=== PATIENT | female | born 1970 | race Caucasian/White ===

== ENCOUNTER 2017-02-03 19:03 | Emergency (ER) | payer OTHER ==
[2017-02-03 19:27] VITALS: BP 143/80
--- NOTE | 2017-02-03 19:47 | UC ---
Respiratory Complaint HPI - HPI Summary HPI Summary: This is a 46 yo female with h/o GERD and OA with morbid obesity who presented with c/o a 1 week history of productive cough. She noted some blood tinged sputum today. She was febrile last week. No sig SOB, but reports pleuritic pain in the R posterior chest. Denies abd pain, n/v. She has had some recent diarrhea. Her boyfriend was recently sick with similar but less severe symptoms. She recently had injections in her SI joints and R knee. She examined each injection site and reported no erythema and denies pain. - History of Current Complaint Chief Complaint: UCGeneralIllness Stated Complaint: COUGH Hx Last Menstrual Period: 01/31/14 - Allergies/Home Medications Allergies/Adverse Reactions: Allergies Allergy/AdvReac Type Severity Reaction Status Date / Time No Known Allergies Allergy Verified 02/03/17 19:27 Home Medications: Home Medications Loratadine [Claritin 10 MG CAP] 10 mg PO DAILY 02/03/17 [History Confirmed 02/03] Topiramate [Topamax 50 mg tab] 50 mg PO DAILY 02/03/17 [History Confirmed ] PMH/Surg Hx/FS Hx/Imm Hx Previously Healthy: No - morbid obesity, GERD, OA - Surgical History Surgical History: Yes Surgery Procedure, Year, and Place: tonsilectomy, R knee arthroscopy, novasure, hysterectomy with anterior and posterior repair, bladder sling--12/2015 - Social History Alcohol Use: Occasionally Substance Use Type: None Smoking Status (MU): Former Smoker When Did the Patient Quit Smoking/Using Tobacco: 2004 - Immunization History Most Recent Tetanus Shot: pt does not know Review of Systems Constitutional: Negative Skin: Negative Eyes: Negative ENT: Negative Respiratory: Cough Cardiovascular: Negative Gastrointestinal: Negative Genitourinary: Negative Motor: Negative Neurovascular: Negative Musculoskeletal: Negative Neurological: Negative Psychological: Negative All Other Systems Reviewed And Are Negative: Yes Physical Exam Triage Information Reviewed: Yes Appearance: Well-Appearing Vital Signs: Initial Vital Signs Temp 98.8 F 02/03/17 19:19 Pulse 88 02/03/17 19:19 Resp 20 02/03/17 19:19 BP 143/80 02/03/17 19:19 Pulse Ox 98 02/03/17 19:19 Vital Signs Reviewed: Yes ENT: Positive: Normal ENT inspection Dental Exam: Normal Neck: Positive: Supple, Nontender, No Lymphadenopathy Respiratory: Positive: Chest non-tender, Lungs clear, Normal breath sounds. Negative: Crackles, Rhonchi, Wheezing Cardiovascular: Positive: RRR, No Murmur Abdominal Exam: Normal Abdomen Description: Positive: Nontender UC Diagnostic Evaluation - Laboratory O2 Sat by Pulse Oximetry: 98 Diagnostic Studies Comment: CXR - NAD Respiratory Course/Dx - Course Course Of Treatment: This is a 46 yo female who presented with a 1 week h/o cough, fever, chills with purulent, blood tinged sputum. No infiltrate on CXR, but with no improvement after one week of symptoms, will treat for atypical pathogens with doxycycline - Differential Dx/Diagnosis Differential Diagnosis/HQI/PQRI: Bronchitis, Laryngitis, Lower Resp Infection, Sinusitis Provider Diagnoses: 1. Acute respiratory illness Discharge - Discharge Plan Condition: Stable Disposition: HOME Prescriptions: DOXYcycline CAP(*) [DOXYcycline 100MG CAP(*)] 100 mg PO BID #14 cap Patient Education Materials: Acute Bronchitis (ED) Referrals: Merissa Sarabia PA [Primary Care Provider] - Additional Instructions: Activity: As tolerated Instructions: 1. Use antibiotics as directed 2. Apply warm packs, use ibuprofen/tylenol as needed for treatment of your back pain
--- NOTE | 2017-02-03 20:00 | RAD ---
INDICATION: Fever and cough COMPARISON: Chest x-ray dated July 10, 2008 (the time of this dictation only the lateral view is available). TECHNIQUE: PA and lateral views of the chest were obtained. FINDINGS: The heart and mediastinum are normal in size and contour. The lungs are grossly clear. There is no evidence of large pleural effusion. Visualized bones are normal for the patient's age. There is no radiographic evidence of free air beneath the diaphragm IMPRESSION: No radiographic evidence of acute cardiopulmonary disease.
== END 2017-02-03 20:22 | disposition home or self-care (01) ==
LOC: UCCORT 19:03
DX: J98.9 Respiratory disorder, unspecified (principal); E66.01 Morbid (severe) obesity due to excess calories; Z87.891 Personal history of nicotine dependence
CPT/HCPCS: 71020; 99212; G0463

== ENCOUNTER 2017-07-08 08:38 | Inpatient (IN) | payer BC ==
[~2017-07-08 08:38] MED LIST: Buffered Lidocaine 0.9% SYRIN* 5 ML/SYR SYRINGE INTRADERM ONE; Famotidine TAB* 20 MG PO ONE; Ibuprofen TAB* 400 MG PO ONE; Metoclopramide TAB* 10 MG PO ONE; Scopolamine 1.5 mg* PATCH TRANSDERM ONE; Sodium Citrate/Citric Acid* 15 ML UDC PO ONE
[2017-07-08] MEDS ORDERED: Heparin VIAL(*) 5000 UNITS/ML VIAL (FIVE THOUSAND) ONE (08:44)
[2017-07-08] MEDS ORDERED: Ibuprofen TAB* 400 MG ONE (08:44)
[2017-07-08] MEDS ORDERED: Sodium Citrate/Citric Acid* 15 ML UDC ONE (08:45)
[2017-07-08] MEDS ORDERED: Clindamycin 900 MG IVPREMIX(* 900 MG/50 ML SDV IV ONE (08:45)
[2017-07-08] MEDS ORDERED: ceFAZolin 1 GM in Dextrose (*) 1 GM/50 ML BAG IVPB ONE (08:45)
[2017-07-08] MEDS ORDERED: Scopolamine 1.5 mg* PATCH ONE (08:45)
[2017-07-08] MEDS ORDERED: ceFAZolin 2 GM PREMIX (*) 2 GM/50 ML BAG IVPB ONE (08:45)
[2017-07-08] MEDS ORDERED: Famotidine TAB* 20 MG ONE (08:45)
[2017-07-08] MEDS ORDERED: Metoclopramide TAB* 10 MG ONE (08:45)
[2017-07-08] MEDS ORDERED: Buffered Lidocaine 0.9% SYRIN* 5 ML/SYR SYRINGE ONE (08:46)
[2017-07-08] MEDS ORDERED: Methylene Blue 0.5 %* 50 MG/10 ML AMP IV ONE (11:43)
[2017-07-08] MEDS ORDERED: Bupivacaine 0.5% SDV PF* 30 ML VIAL ONE (11:43)
[2017-07-08] MEDS ORDERED: Atracurium* 10 MG/ML 10 ML VIAL ONE (11:58)
[2017-07-08] MEDS ORDERED: fentaNYL* 50 MCG/ML 2 ML VIAL (100 MCG VIAL) ONE ×3 (11:58→14:53)
[2017-07-08] MEDS ORDERED: Lidocaine 2% PF * 5 ML VIAL ONE (12:03)
[2017-07-08] MEDS ORDERED: Dexamethasone IV* 4 MG/ML 1 ML (4 MG) ONE (12:03)
[2017-07-08] MEDS ORDERED: Propofol* 10 MG/ML 20 ML BTL IV PUSH ONE (12:03)
[2017-07-08] MEDS ORDERED: oxyCODONE/Acetamin 5/325 MG* TAB PO PRN (12:50)
[2017-07-08] MEDS ORDERED: DiMENhydriNATE IV* 50 MG/ML VIAL IV PUSH PRN (12:50)
[2017-07-08] MEDS ORDERED: Ondansetron INJ* 2 MG/ML VIAL ONE (13:41)
[2017-07-08] MEDS ORDERED: HYDROmorphone INJ* 1 MG/ML CARPUJECT SYRINGE ONE (14:26)
[2017-07-08] MEDS ORDERED: DiMENhydriNATE IV* 50 MG/ML VIAL ONE (14:26)
[2017-07-08] MEDS: fentaNYL* 50 MCG/ML 2 ML VIAL (100 MCG VIAL) IV PRN ×4 (14:29→15:37)
[2017-07-08] MEDS: HYDROmorphone INJ* 1 MG/ML CARPUJECT SYRINGE IV PRN ×4 (14:34→16:04)
--- NOTE | 2017-07-08 14:35 | PN ---
Progress Note - Progress Note Date of Service: 07/08/17 Note: Brief Operative Note: Pre-op: Morbid obesity Post-op: Same Procedure: Laparoscopic Soumya-en-Y gastric bypass Surgeon: Dr. Rodríguez Administrative Liaison: JUAN Jackson Anaesthesia: GETA EBL: Minimal Fluids: LR 1300 cc Catheter: Brumfield to gravity Drains: None Specimen: None Findings: See dictated op note
[2017-07-08] MEDS: Ketorolac INJ* 30 MG/ML 1 ML VIAL IV PRN (15:00)
[2017-07-08] MEDS ORDERED: Ketorolac INJ* 30 MG/ML 1 ML VIAL ONE (15:00)
[2017-07-08] MEDS: HYDROmorphone INJ* 2 MG/ML CARPUJECT SYRINGE IV PRN ×3 (17:09→23:04)
[2017-07-08] MEDS: Ondansetron INJ* 2 MG/ML VIAL IV PRN (17:09)
[2017-07-08] MEDS: Famotidine IV* 10 MG/ML 2 ML (20 mg) IV SLOW PU SCH (19:33)
[2017-07-08] MEDS: Heparin VIAL(*) 5000 UNITS/ML VIAL (FIVE THOUSAND) SUBCUT SCH (23:00)
[2017-07-09] MEDS: Ondansetron INJ* 2 MG/ML VIAL IV PRN ×3 (01:07→18:54)
--- NOTE | 2017-07-09 02:19 | OP ---
CC: [facility]; JUAN Fields, [place] * DATE OF OPERATION: 07/08/17 - ROOM #351 DATE OF : 70 SURGEON: Tyron Rodríguez MD BALANCING MACHINE OPERATOR: JUAN Rosas ANESTHESIOLOGIST: Augusto Medina MD ANESTHESIA: General endotracheal. PRE-OP DIAGNOSIS: Morbid obesity. POST-OP DIAGNOSIS: Morbid obesity. OPERATIVE PROCEDURE: Laparoscopic Soumya-en-Y gastric bypass. ESTIMATED BLOOD LOSS: Less than 30 mL. IV FLUIDS: 1.3 L of crystalloids. SPECIMENS: None. DRAINS: None. COMPLICATIONS: None. COUNT: Instrument, needle, and sponge counts were correct. DESCRIPTION OF PROCEDURE: The patient was brought to the operating room and placed on the table supine. Sequential compression devices were placed on both lower extremities and general anesthesia was administered. The patient was positioned and padded appropriately. After general anesthesia was administered , she had a Brumfield catheter placed. She was administered appropriate intravenous antibiotics. She was prepped and draped in the usual sterile fashion. A time-out was performed. Local anesthetic was infiltrated into the skin and soft tissue prior to making each incision. Entry into the abdomen was through a left upper quadrant incision accommodating a 12-mm optical trocar. Carbon dioxide was insufflated to a pressure of 15 mmHg. Under direct visualization, 12-mm bladeless trocars were placed in the supraumbilical, midline, and in right upper quadrant. 5-mm trocars were placed in the right upper quadrant medially and left upper quadrant laterally. A Cecelia liver retractor was placed percutaneously in the subxiphoid position and used to elevate the left lobe of the liver. Gastric anatomy appeared normal. The gastric cardia was freed from the left crux of the diaphragm using blunt dissection. The lesser sac was entered via a perigastric dissection on the lesser curvature and the gastric pouch was created with several findings of the EndoGIA stapler with rousseau cartridges. The gastric pouch approximated 15 to 30 mL volume. A 34-Telugu orogastric tube was inserted into the gastric pouch and then the transverse colon and omentum were retracted superiorly and the ligament of Treitz was identified. The jejunum was measured out 40 to 50 cm and the loop was then secured to the left lateral staple line on the pouch with interrupted 2-0 silks. The gastrojejunal anastomosis was performed with the EndoGIA stapler with 30-mm rousseau cartridge. The common enterotomy was closed over the 34-Telugu gastric lavage tube. The closure was performed with a running 3- 0 PDS suture. The anastomosis was completed by dividing the loop to the left of the anastomosis to create the Soumya limb. The anastomosis was tested with methylene blue dye solution, instilled through the orogastric tube and no leak was identified. The Soumya limb was measured out 75 cm and at this point, a functional end-to-side jejunojejunostomy was created. The anti-obstruction sutures of 3-0 silk were placed proximally and distally to the anastomosis. The mesenteric defect was closed with 3-0 silk running. Hemostasis was assured. Ports were removed under direct visualization. Carbon dioxide was released. The patient's skin incisions were closed with emilie and dressings were applied. She tolerated the procedure well and was extubated and transferred to Recovery in stable condition. [id number]/CPS #: [id number] WES
[2017-07-09] MEDS: Ketorolac INJ* 30 MG/ML 1 ML VIAL IV PRN ×2 (02:36→09:05)
[2017-07-09] MEDS: Heparin VIAL(*) 5000 UNITS/ML VIAL (FIVE THOUSAND) SUBCUT SCH ×3 (05:49→21:54)
[2017-07-09] MEDS: Famotidine IV* 10 MG/ML 2 ML (20 mg) IV SLOW PU SCH ×2 (07:31→21:54)
[2017-07-09] MEDS: HYDROmorphone INJ* 1 MG/ML CARPUJECT SYRINGE IV PRN ×3 (07:31→19:41)
[2017-07-09] MEDS ORDERED: Acetaminophen ADULT LIQ* 650 MG/20.3 ML UDC PO PRN (11:37)
--- NOTE | 2017-07-09 11:43 | PN ---
Progress Note - Progress Note Date of Service: 07/09/17 SOAP: Subjective: Patient seen and examined at bedside. Reports nausea and right shoulder pain last night, resolved this AM. Denies abdominal pain, vomiting, fever or chills. Ambulatory. Objective: Awake and alert, comfortable in bed, in NAD Vitals reviewed, afebrile Lungs CTA bilat. Heart RRR, no murmurs Abdomen soft, NT, ND. Incisions clean and dry. No guarding, rigidity or rebound. Ext. without edema I/O reviewed Assessment: POD#1, s/p laparoscopic RYGB, doing well Plan: Octaviano laird d/c'ed Ambulate Bariatric clear liquids Likely home in AM
[2017-07-09] MEDS: D5W 1/2 NS KCl 20 Meq 1000 ML* 1,000 ML IV SCH ×2 (14:17→18:50)
[2017-07-09] MEDS: HYDROcodone/ACET. 7.5/325 LIQ* 15 ML UDC PO PRN ×2 (14:29→21:54)
[2017-07-09] MEDS ORDERED: D5W IV ONE (15:00)
[2017-07-09] MEDS ORDERED: [UNRECOGNIZED DRUG - OTHER] IV ONE (15:00)
[2017-07-09] MEDS ORDERED: Cetirizine* 10 MG TAB PO PRN (17:44)
[2017-07-09] MEDS: Cetirizine* 10 MG TAB PO SCH (18:21)
[2017-07-10] MEDS: HYDROmorphone INJ* 1 MG/ML CARPUJECT SYRINGE IV PRN (00:20)
[2017-07-10] MEDS: D5W 1/2 NS KCl 20 Meq 1000 ML* 1,000 ML IV SCH (02:50)
[2017-07-10] MEDS: HYDROcodone/ACET. 7.5/325 LIQ* 15 ML UDC PO PRN ×2 (05:36→11:44)
[2017-07-10] MEDS: Heparin VIAL(*) 5000 UNITS/ML VIAL (FIVE THOUSAND) SUBCUT SCH (05:38)
[2017-07-10] MEDS: Ondansetron INJ* 2 MG/ML VIAL IV PRN ×2 (05:42→11:48)
[2017-07-10] MEDS: Famotidine IV* 10 MG/ML 2 ML (20 mg) IV SLOW PU SCH (07:43)
[2017-07-10] MEDS: Cetirizine* 10 MG TAB PO SCH (07:44)
--- NOTE | 2017-07-10 11:01 | PN ---
Progress Note - Progress Note Date of Service: 07/10/17 Note: Surgery Progress (see discharge summary): S: doing fairly well; intake adeq; feels some reflux and burning sensation with drinking; passing flatus; ambulating well; UOP better overnight O: Vital Signs - 8 hr 07/10/17 07/10/17 07/10/17 03:42 04:21 05:36 Temperature 98.4 F Pulse Rate 64 Respiratory 18 16 18 Rate Blood Pressure 130/60 (mmHg) O2 Sat by Pulse 98 Oximetry 07/10/17 07/10/17 07/10/17 07:33 08:00 08:22 Temperature 97.6 F Pulse Rate 54 Respiratory 18 18 18 Rate Blood Pressure 100/61 (mmHg) O2 Sat by Pulse 96 96 Oximetry Intake and Output Last 24 Hours 07/08/17 07/09/17 07/10/17 07/11/17 06:59 06:59 06:59 06:59 Intake Total 4939 3581 977 Output Total 575 1000 1350 Balance 4364 2581 -373 Weight 268 lb Intake: IV Fluids 3939 3221 977 CEFAZOLIN 3 GM 100 CLINDAMYCIN 900MG 50 LR 3789 1244 d51/2 ns 20 kcl 1977 977 IVPB 1000 LR bolus 1000 Oral 0 360 Output: Urine 500 1000 1350 Brumfield 75 Other: # Bowel Movements 0 Gen: NAD Heart: reg Lungs: clear Abd: +BS; incisions clean and dry; dressings d/c'd; soft; min mostly subxiphoid incisional tenderness Extr: no sig edema A: s/p lap RYGB, doing well P: home today; instructions reviewed; Tegan [email or web address]
[2017-07-10 11:37] VITALS: BP 137/63
--- NOTE | 2017-07-10 20:04 | DS ---
CC: JUAN Fields, [facility] * DISCHARGE SUMMARY: DATE OF ADMISSION: 07/08/17 DATE OF DISCHARGE: 07/10/17 ATTENDING SURGEON: Dr. Tyron Rodríguez * (DICTATED BY JUAN ZIEGLER) HOSPITAL COURSE: Please refer to admission history and physical for admission details. The patient was taken to the operating room on 07/08/17, and underwent laparoscopic Soumya-en-Y gastric bypass with Dr. Rodríguez (see separate operative report). The patient has had an otherwise uneventful postoperative course with gradual improvement in pain and tolerance of bariatric clear liquids. As of the morning of discharge, she was ambulating well and passing flatus. Her urine output had improved overnight. PHYSICAL EXAMINATION: Temperature 97.6, blood pressure 100/61, pulse 54, respirations 18, room air saturation 96%. General: A well-nourished obese female in no acute distress. Heart: Regular rate and rhythm. Lungs: Clear to auscultation. No wheezes or rales. Abdomen: Laparoscopic incision sites clean and dry without active drainage or erythema. Abdomen is soft and nontender other than the subxiphoid region where there is some incisional tenderness. There is some mild ecchymosis in the left lateral abdomen secondary to heparin. Extremities: No significant edema. IMPRESSION: Status post laparoscopic Soumya-en-Y gastric bypass, doing well. PLAN: Home today. Instructions were reviewed regarding diet, wound care, and activity. She has a followup set up with the [facility] for next week. JUAN ZIEGLER [id number]/CPS #: [id number]
[2017-07-11] MEDS ORDERED: Scopolamine PATCH Remove* 1 NOTE MISC PATCH OFF ONE (06:00)
== END 2017-07-10 12:30 | disposition home or self-care (01) | DRG 403 ==
LOC: AA 08:38 → SSU 16:16
PROVIDERS: ADMIT Surgery; ATTEND Surgery
PROC: 0D164ZA Bypass Stomach to Jejunum, Percutaneous Endoscopic Approach (ICD-10-PCS; principal; 2017-07-08 10:00)
DX: E66.01 Morbid (severe) obesity due to excess calories (principal); F32.9 Major depressive disorder, single episode, unspecified; I10 Essential (primary) hypertension; M17.11 Unilateral primary osteoarthritis, right knee; M25.511 Pain in right shoulder; R11.0 Nausea; K21.9 Gastro-esophageal reflux disease without esophagitis; Z90.710 Acquired absence of both cervix and uterus; Z82.49 Family history of ischemic heart disease and other diseases of the circulatory system; Z83.3 Family history of diabetes mellitus; Z82.61 Family history of arthritis; Z80.3 Family history of malignant neoplasm of breast; Z80.49 Family history of malignant neoplasm of other genital organs; Z83.49 Family history of other endocrine, nutritional and metabolic diseases; Z84.89 Family history of other specified conditions; Z87.891 Personal history of nicotine dependence; Z68.42 Body mass index [BMI] 45.0-49.9, adult
CPT/HCPCS: 43644; A9270-GY; C1776; J0690; J1100; J1170; J1240; J1644; J1885; J2405; J2704; J3010

== ENCOUNTER 2017-08-25 09:40 | Emergency (ER) | payer BC ==
--- NOTE | 2017-08-25 10:19 | ED ---
Abdominal Pain/Female - HPI Summary HPI Summary: Patient here with right upper quadrant pain radiating to Rt shoulder past few days. 3/10 at rest - 8/10 at worse. better w/ holding the area/applying pressure. Pain is worse after eating or drinking but this morning noticed she had right upper quadrant pain without anything by mouth. Denies fevers chills nausea vomiting diarrhea however she reports a more pale stool the past few days. She reports she's had some right upper quadrant discomfort since gastric bypass surgery (Soumya-en-Y procedure) on 07/08/[address] Rodríguez. She's been progressing through stages of liquids to foods and tolerating well. She's had follow-up with Dr. Rodríguez since surgery without any complications from surgery (ie. infections, set backs with PO tolerance, etc). She denies rapid weight loss. She does admit she was diagnosed with the influenza last week - this entailed sore throat, rhinorrhea, cough. Her symptoms have mostly resolved except for a lingering cough due to postnasal drip. She denies chest pain or wheezing but does experience SOB when she gets coughing hard. Last fever was last Friday. She still has her gallbladder. Other ab surgeries include hysterectomy sparing her ovaries. She denies urinary symptoms and had her last bowel movement this morning without difficulty. She has consumed 24oz of fluid already this morning over 4 hours, water and coffee ("sips" as large quantities are painful). PCP sent her over for evaluation w/ persistent and worsening of RUQ pain. - History of Current Complaint Chief Complaint: EDAbdPain Stated Complaint: RT UPPER QUADRANT PAIN Time Seen by Provider: 08/25/17 09:48 Hx Obtained From: Patient Hx Last Menstrual Period: 01/31/14 Pain Intensity: 2 Allergies/Adverse Reactions: Allergies Allergy/AdvReac Type Severity Reaction Status Date / Time No Known Allergies Allergy Verified 07/08/17 08:52 PMH/Surg Hx/FS Hx/Imm Hx Previously Healthy: Yes Endocrine/Hematology History: Denies: Hx Anticoagulant Therapy, Hx Blood Disorders, Hx Diabetes, Hx Thyroid Disease, Hx Anemia Cardiovascular History: Denies: Hx Hypercholesterolemia, Hx Hypertension, Hx Myocardial Infarction Respiratory History: Denies: Hx Asthma, Hx Chronic Obstructive Pulmonary Disease (COPD) GI History: Reports: Hx Gastroesophageal Reflux Disease Musculoskeletal History: Reports: Hx Arthritis, Hx Bursitis - bilat hips Sensory History: Reports: Hx Contacts or Glasses Denies: Hx Hearing Aid Opthamlomology History: Reports: Hx Contacts or Glasses Neurological History: Comment Only: Other Neuro Impairments/Disorders - PAIN CLINIC PT - Cancer History Hx Chemotherapy: No - Surgical History Surgery Procedure, Year, and Place: tonsilectomy, R knee arthroscopy, novasure, hysterectomy with anterior and posterior repair, bladder sling--12/2015 Hx Anesthesia Reactions: No Infectious Disease History: No Infectious Disease History: Denies: Hx of Known/Suspected MRSA, Traveled Outside the [place] in Last 30 Days - Family History Known Family History: Positive: None - Social History 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 Negative: Sore Throat, Ear Ache Cardiovascular: Negative Negative: Chest Pain Positive: Cough Positive: Abdominal Pain. Negative: Vomiting, Diarrhea, Nausea Genitourinary: Negative Musculoskeletal: Negative Skin: Negative, Other - surgical scars healing well Positive: Headache - dull around back of head - tolerable - has had this since influenza sx started Psychological: Normal All Other Systems Reviewed And Are Negative: Yes Physical Exam Triage Information Reviewed: Yes Vital Signs On Initial Exam: Initial Vitals Temp Pulse Resp BP Pulse Ox 97.8 F 73 20 151/81 98 08/25/17 09:41 08/25/17 09:41 08/25/17 09:41 08/25/17 09:41 08/25/17 09:41 Vital Signs Reviewed: Yes Appearance: Positive: Well-Appearing, No Pain Distress, Obese Skin: Positive: Warm, Skin Color Reflects Adequate Perfusion - scars over ab appear to be healing well - pink, warm, dry w/o erythema or edema - evenly dispursed and mild TTP over each site, appropriate given procedure and healing time frame., Dry Head/Face: Positive: Normal Head/Face Inspection Eyes: Positive: Normal, EOMI, Conjunctiva Clear - anicteric sclera ENT: Positive: Normal ENT inspection, Hearing grossly normal, Pharynx normal - mucosa moist, Nasal congestion - mild, TMs normal, Uvula midline. Negative: Nasal drainage, Tonsillar swelling, Tonsillar exudate, Trismus, Muffled voice Neck: Positive: Supple, Nontender, No Lymphadenopathy Respiratory/Lung Sounds: Positive: Clear to Auscultation, Breath Sounds Present. Negative: Decreased Breath Sounds, Rales, Rhonchi, Stridor, Tracheal Deviation, Wheezes Cardiovascular: Positive: Normal, RRR, Pulses are Symmetrical in both Upper and Lower Extremities, S1, S2. Negative: Murmur, Rub Abdomen Description: Positive: No Organomegaly, Soft, Other: - +Chung's sign - no rebounding Bowel Sounds: Positive: Present Pelvic Exam: Positive: other - deferred - no lower pelvic tenderness and pt denies vaginal/urinary sx Musculoskeletal: Positive: Normal, Strength/ROM Intact Neurological: Positive: Normal, Sensory/Motor Intact, Alert, Oriented to Person Place, Time, CN Intact II-III Psychiatric: Positive: Normal Diagnostics - Vital Signs Vital Signs Temp Pulse Resp BP Pulse Ox 08/25/17 09:41 97.8 F 73 20 151/81 98 - Laboratory Result Diagrams: 08/25/17 10:26 08/25/17 10:26 Lab Statement: Any lab studies that have been ordered have been reviewed, and results considered in the medical decision making process. Re-Evaluation - Re-Evaluation First Eval Change: Improved - no pain or nausea since here - she does admit U/S was painful but no pain since Abdominal Pain Fem Course/Dx - Course Course Of Treatment: Bariatric status pt here s/p soumya-en-y on 07/08/2017 w/ Dr. Rodríguez. She reports right upper quadrant discomfort since surgery worse with eating and drinking however this pain is increased over the past few days without change in diet. She has advanced through her diet as directed without difficulties. Denies nausea vomiting diarrhea fevers or chills. She does admit she had influenza this past week however she is recovering from that well at this time. Labs are within normal limits. Ultrasound of gallbladder is without inflammation or stone findings. Discussed with Dr. Webb. He or a colleague will be down to evaluate the patient. Diff dx: Gallbladder dysfunction, pathology status post bariatric surgery, difficulty tolerating by mouth status post bariatric surgery - possibly advancing too quickly and or eating foods/drinking beverages that are not appropriate although pt reports she 's tracking things closely. We will await further imaging based on surgeries consult. UPDATE: Discussed case with general surgery. Diagnosis may be more consistent with biliary dyskinesia and she is safe for discharge. Review danger signs and symptoms of when to return to the ED. Otherwise patient may follow up outpatient for HIDA CCK study and follow-up with general surgeon. - Diagnoses Provider Diagnoses: RUQ abdominal pain Discharge - Discharge Plan Condition: Stable Disposition: HOME Patient Education Materials: Abdominal Pain (ED), Biliary Dyskinesia (DC) Forms: *Work Release Referrals: Tyron Rodríguez MD [Medical Doctor] - Merissa Sarabia PA [Primary Care Provider] - Additional Instructions: The definitive cause of your abdominal pain was not identified today however it is suspicious that she have biliary dyskinesia, a condition where gallbladder does not function correctly. This may be further assessed on an outpatient basis through your primary care office. Call today to request test to be ordered and scheduled. If test is positive for gallbladder dysfunction, you may follow up with your general surgery. Otherwise follow-up with general surgery as directed status post bariatric surgery. Continue with dietary plan as advised however you may consider reducing your fat intake in an effort to reduce triggering gallbladder spasms. *If you develop nausea, vomiting, any diarrhea, intractable abdominal pain, fevers, chills return to the ED.
[2017-08-25 10:35] LABS: ABS Basophils 0.1 10^3/ul (0-0.2); ABS Eosinophils 0.2 10^3/ul (0-0.6); ABS Lymphocytes 2.9 10^3/ul (1.0-4.8); ABS Monocytes 0.5 10^3/ul (0-0.8); ABS Neutrophils 2.4 10^3/ul (1.5-7.7); ABS Nucleated RBC 0 10^3/ul; Eosinophil % 2.9 % (0-6); Hematocrit 43 % (35-47); Hemoglobin 14.3 g/dl (12.0-16.0); Lymphocyte % 48.7 % (25-47); Mean Corpuscular HGB Conc 34 g/dl (31-36); Mean Corpuscular Hemoglobin 30 pg (27-31); Mean Corpuscular Volume 89 fL (80-97); Mean Platelet Volume 8 um3 (7.4-10.4); Nucleated Red Blood Cells % 0; Platelet Count 258 10^3/ul (150-450); Red Blood Count 4.77 10^6/ul (4.0-5.4); Red Cell Distribution Width 15 % (10.5-15)
[2017-08-25 10:45] LABS: Urine Appearance Cloudy; Urine Blood Negative (Negative); Urine Color Yellow; Urine Ketones Negative (Negative); Urine Protein Negative (Negative); Urine Specific Gravity 1.005 (1.010-1.030); Urine Urobilinogen Negative (Negative)
[2017-08-25 10:49] LABS: EGFR Non-African American 124.2 (>60)
[2017-08-25 11:00] LABS: INR 0.94 (0.77-1.02)
--- NOTE | 2017-08-25 12:08 | RAD ---
Indication: Right upper quadrant pain. Real-time sonography of the right upper quadrant was performed. The liver is normal in size. No focal lesions or intrahepatic ductal dilatation is noted. The gallbladder demonstrates no gallstones, pericholecystic fluid or wall thickening. The common duct measures 2 mm. Right kidney measures 11.5 x 6.0 x 5.7 cm with no hydronephrosis. The pancreas where visualized is unremarkable although large portions are obscured by overlying gas. Aorta and inferior vena cava are unremarkable. IMPRESSION: No evidence of cholelithiasis or biliary duct dilatation is noted. Study is limited due to body habitus.
[2017-08-25 14:05] VITALS: BP 112/68
== END 2017-08-25 14:04 | disposition home or self-care (01) ==
LOC: ED 09:40
DX: R10.11 Right upper quadrant pain (principal); Z87.891 Personal history of nicotine dependence
CPT/HCPCS: 36415; 76705; 80053; 80076; 81003; 83605; 83690; 83735; 85025; 85610; 85730; 86140; 99282

== ENCOUNTER 2018-05-26 09:00 | Inpatient (IN) | payer BC ==
--- NOTE | 2018-05-13 18:16 | HP ---
AMENDED REPORT NOW INCLUDES COSIGNER DESIGNATION HISTORY AND PHYSICAL: DATE OF ADMISSION/SURGERY: 05/26/18 DATE OF OFFICE VISIT: 05/13/18 SURGEON: Florecita Ybarra MD * (DICTATED BY JUAN CARPENTER) PROCEDURE: Right total knee arthroplasty. CHIEF COMPLAINT: Right knee pain. HISTORY OF PRESENT ILLNESS: Ms. Roman is a 47-year-old female with complaints of right knee pain. She has failed conservative treatment and elected to proceed with a right total knee arthroplasty, which is scheduled for 05/26/[address] Ybarra. PAST MEDICAL HISTORY: GERD. PAST SURGICAL HISTORY: Gastric bypass, hysterectomy with reconstruction and bladder sling, NovaSure procedure, tonsillectomy, adenoidectomy and right knee arthroscopy. CURRENT MEDICATIONS: 1. Extra Strength Tylenol as needed. 2. Vagifem. 3. Vitamin B12. 4. Calcium with vitamin D. 5. Multivitamin. 6. Vitamin B1. 7. Mobic as needed. ALLERGIES: No known drug allergies. FAMILY HISTORY: Diabetes and hypertension. SOCIAL HISTORY: She is a 47-year-old female. She lives with her daughter and boyfriend. She does not smoke or use drugs. Uses occasional alcohol. REVIEW OF SYSTEMS: A complete 14-point review of systems was reviewed with the patient. It was positive for GERD and history of an MRSA infection in her groin 4 years ago. She denies history of DVT, PE, hepatitis, HIV or anesthesia problems. PHYSICAL EXAMINATION GENERAL: She is well developed, well nourished, in no acute distress. VITAL SIGNS: She stands 5 feet 5 inches tall, weighs 213 pounds. Her blood pressure is 118/82, her heart rate is 64. HEENT: Normocephalic, atraumatic. NECK: Supple. No palpable lymph nodes. PULMONARY: Lungs are clear to auscultation bilaterally. CARDIO: Regular rate and rhythm. Strong S1, S2. ABDOMEN: Soft, nontender, nondistended. NEUROLOGICAL: She is alert and oriented x3. MUSCULOSKELETAL: Right lower extremity: The skin is intact. There are no open wounds or abrasions. She walks with an antalgic type gait favoring her right knee. She has a moderate right knee joint effusion. Range of motion is 10 to 125 degrees of flexion. She has 2+ dorsalis pedis pulse. Intact sensation. Her lower extremity muscle group strengths are intact at 5/5. ASSESSMENT AND PLAN: Ms. Roman is a 47-year-old female with end-stage osteoarthritis of the right knee. She has failed conservative treatment and elected to proceed with a right total knee arthroplasty, which is schedule for 05/26/[address] Ybarra discussed the risks and benefits of the surgery at today's visit and all of her questions were answered. She will follow up with Dr. Ybarra 2 weeks after the surgery. JUAN CARPENTER [id number]/[facility] #: [id number] WES
[~2018-05-26 09:00] MED LIST changes: +Dexamethasone IV* 4 MG/ML 1 ML (4 MG) IV SLOW PU ONE; +Famotidine IV* 10 MG/ML 2 ML (20 mg) IV ONE; -Famotidine TAB* 20 MG PO ONE; -Ibuprofen TAB* 400 MG PO ONE; -Metoclopramide TAB* 10 MG PO ONE; -Scopolamine 1.5 mg* PATCH TRANSDERM ONE; -Sodium Citrate/Citric Acid* 15 ML UDC PO ONE; +Tranexamic Acid 1,000 MG in NS 0.9% 50 ML* (outpatient use) IV SCH
--- OUTSIDE RECORDS SUMMARY | 2018-05-26 10:07 | XMS REPORT ---
:1970 Author Organization [facility] Address [address] [place] [address] Care Team Providers Name Role Phone Yvonne Bergman Unavailable Unavailable PROBLEMS Type Condition ICD9-CM Code [id number] Onset Condition SNOMED Code Code Dates Status Problem Pelvic and perineal R10.2 Active 663646181 pain Problem Anal spasm K59.4 Active 18196581 Problem Body mass index Z68.42 Active 350652470 (BMI) 45.0-49.9, adult Problem Diffuse cystic N60.12 Active 80860316 mastopathy of left breast Problem Diffuse cystic N60.11 Active 96384455 mastopathy of right breast Problem Incomplete N81.2 Active 437275136 uterovaginal prolapse Problem Dysmenorrhea, N94.6 Active 324520083 unspecified Problem Postmenopausal N95.2 Active 21580237 atrophic vaginitis Problem Menopausal and N95.1 Active 479360595 female climacteric states Problem Morbid (severe) E66.01 Active 717605774 obesity due to excess calories Problem Unspecified urinary R32 Active 279697216 incontinence Problem Rectocele N81.6 Active 282703938 Problem Other specified N93.8 Active 393410543 abnormal uterine and vaginal bleeding Problem Family history of Z80.3 Active 359306820 malignant neoplasm of breast ALLERGIES No Known Allergies ENCOUNTERS Encounter Location Date Diagnosis [facility] 103 Apr, Encounter for OBGYN [facility], gynecological examination [place] [id number] (general) (routine) without abnormal findings Z01.419 ; Postmenopausal atrophic vaginitis N95.2 ; Encounter for screening mammogram for malignant neoplasm of breast Z12.31 and Family history of malignant neoplasm of breast Z80.3 [facility] 103 November, [place] [id number] [facility] 103 Oct, Family history of OBGYN [facility], malignant neoplasm of [place] [address] breast Z80.3 ; Encounter for other screening for malignant neoplasm of breast Z12.39 ; Postmenopausal atrophic vaginitis N95.2 ; Diffuse cystic mastopathy of left breast N60.12 and Diffuse cystic mastopathy of right breast N60.11 [facility] 103 Apr, [place] [id number] [facility] 103 Apr, Encounter for [facility] gynecological examination [place] [id number] (general) (routine) with abnormal findings Z01.411 ; Postmenopausal atrophic vaginitis N95.2 ; Encounter for screening mammogram for malignant neoplasm of breast Z12.31 and Family history of malignant neoplasm of bladder Z80.52 [facility] 103 Feb, [place] [id number] [facility] 103 Jan, Decreased libido R68.82 [facility], and Postmenopausal [place] [address] atrophic vaginitis N95.2 [facility] 103 Jan, [place] [id number] [facility] 103 Dec, [place] [id number] [facility] 103 Dec, [place] [id number] [facility] 103 Dec, [place] [id number] [facility] 103 November, Postmenopausal atrophic OBG[facility], vaginitis N95.2 ; [place] [id number] Menopausal and female climacteric states N95.1 ; Decreased libido R68.82 and Body mass index (BMI) 45.0-49.9, adult Z68.42 [facility] 103 November, Pelvic and perineal pain OBG[facility], R10.2 [place] [id number] [address] Oct, Family history of OBGYN [address] [place], malignant neoplasm [place] [id number] breast Z80.3 ; Pelvic and perineal pain R10.2 and Abnormal weight gain R63.5 [facility] 103 14 Aug, 2016 Family history of OBGYN [facility], malignant neoplasm of [place] [id number] breast Z80.3 and Encounter for screening mammogram for malignant neoplasm of breast Z12.31 [facility] 103 Jun, [place] [id number] [facility] 103 Mar, [facility] [place] [id number] (general) (routine) without abnormal findings Z01.419 ; Unspecified urinary incontinence R32 ; Rectocele N81.6 ; Incomplete uterovaginal prolapse N81.2 and Family history of malignant neoplasm of breast Z80.3 [facility] 103 Mar, [place] [id number] [facility] 103 Feb, Anal spasm K59.4 ; Other OBGYN [facility], general symptoms and signs [place] [id number] R68.89 and Decreased white blood cell count, unspecified D72.819 [facility] 103 Feb, [place] [id number] [facility] 103 Jan, Anal spasm K59.4 and Other OBGYN [facility], general symptoms and signs [place] [id number] R68.89 [facility] 103 17 Jan, 2016 [place] [id number] [facility] 103 Jan, [place] [id number] [facility] 103 Jan, Other general symptoms and OBGYN [facility], signs R68.89 [place] [id number] [facility] 103 Jan, Dysuria R30.0 ; Anal spasm OBG[facility], K59.4 and Other general [place] [id number] symptoms and signs R68.89 [facility] 103 Dec, Dysuria R30.0 ; Other OBG[facility], specified noninflammatory [place] [id number] disorders of vagina N89.8 and Anal spasm K59.4 [facility] 103 Dec, [place] [id number] [facility] 103 Dec, Other [facility] uterine and vaginal [place] [id number] bleeding N93.8 [facility] [address] [place], Dec, [facility] [place] [id number] [facility] Dec, [place] [id number] [facility] 103 Dec, [place] [id number] [place] [facility] [address] [place] [address] Dec, Rectocele N81.6 ; [facility] [address] [place], Unspecified urinary [place] [id number] incontinence R32 ; Other specified abnormal uterine and vaginal bleeding N93.8 ; Dysmenorrhea, unspecified N94.6 ; Anal spasm K59.4 ; Body mass index (BMI) 45.0-49.9, adult Z68.42 and Other microscopic hematuria R31.2 [facility] 103 Dec, Leiomyoma of uterus, OBGYN [facility], unspecified D25.9 ; Other [place] [id number] ovarian cysts N83.29 and Other doubling of uterus Q51.2 [facility] [address] [place], November, Medical Center [place] [id number] [place] [facility] [address] [facility] November, Other specified abnormal OBGYN [address] [place], uterine and vaginal [place] [id number] bleeding N93.8 and Dysmenorrhea, unspecified N94.6 [facility] 103 November, Unspecified urinary [facility]BG[facility], incontinence R32 [place] [id number] [facility] 103 November, [place] [id number] [facility] Oct, [place] [id number] [facility] 103 Oct, Rectocele N81.6 ; OBGYN [facility], Unspecified urinary [place] [id number] incontinence R32 ; Other specified abnormal uterine and vaginal bleeding N93.8 ; Dysmenorrhea, unspecified N94.6 ; Anal spasm K59.4 and Body mass index (BMI) 45.0-49.9, adult Z68.42 [facility] 103 Oct, Other specified abnormal OBGYN [facility], uterine and vaginal [place] [id number] bleeding N93.8 ; Pelvic and perineal pain R10.2 ; Ovarian cyst NOS 620.2 and Leiomyoma of uterus, unspecified D25.9 [facility] 103 Sep, Pelvic and perineal pain OBGYN [facility], R10.2 ; Family history of [place] [address] malignant neoplasm of breast Z80.3 ; Rectocele N81.6 ; Unspecified urinary incontinence R32 ; Morbid (severe) obesity due to excess calories E66.01 and Other specified abnormal uterine and vaginal bleeding N93.8 [facility] 103 May, [place], [place] [id number] [facility] 103 Apr, [place], [place] [id number] [facility] 103 Mar, [place] [id number] [facility] 103 Mar, ROUTINE [employer] EXAMINATION OBGYN [facility], V72.31 ; SCREEN MAMMOGRAM [place] [id number] NEC V76.12 ; Stress incontinence, female 625.6 and FAMILY HX-BREAST MALIG V16.3 [facility] 103 November, ROUTINE [employer] EXAMINATION OBGYN [facility], V72.31 ; 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 [place] [id number] EXAM V76.2 ; SCREEN MAMMOGRAM NEC V76.12 ; STD Screen V74.5 ; Stress incontinence, female 625.6 ; 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 ; PELVIC PAIN 625.9 and Dyspareunia 625.0 IMMUNIZATIONS No Known Immunizations SOCIAL HISTORY Never Assessed REASON FOR REFERRAL FUNCTIONAL STATUS PLAN OF CARE Activity Details Follow Up 6 month CBE, 1 year annual Reason: VITAL SIGNS Height 65 in 2018-05-15 Weight 214 lbs 2018-05-15 BMI 35.61 kg/m2 2018-05-15 Blood pressure systolic 112 mm Hg 2018-05-15 Blood pressure diastolic 58 mm Hg 2018-05-15 MEDICATIONS Medication Instructions Dosage Frequency Start End Duration Status Date Date Vitamin B12 500 orally once a day 1 tab(s) 24h Active mcg Calcium 500+D chewed 2 times a 1 tab(s) 12h Active 500 mg-400 intl day units Vagifem 10 mcg intravaginally 1 tab(s) 30 day(s) Active twice weekly thiamine 250 mg orally M,W,F 1 tab(s) Active Vitamin D3 1000 chewed once a day 2 tab(s) 24h Active intl units biotin 5000 mcg orally once a day 1 tab(s) 24h Not-Takin g multivitamin chewed once a day 1 tab(s) 24h Active Multiple Vitamins PROCEDURES No Known procedures RESULTS No Results REASON FOR VISIT annual Insurance Providers [facility] Member Patient Patient Patient Patient Patient Subscriber Subscriber Subscriber Group Insurance Plan Plan Plan Plan ID Relationship Address Phone Name Date of ID Name Date of No Type Insurance Insurance Insurance Coverage to Subscriber Address Phone Name Dates [place] [phone] [place] self Rick [id number] [place] [address] [place] [address] [employer] [phone] [employer] self Rick 1970 [id number] Blue [id number] 89 Blue [place] 8 Cross/Blue [place] Cross/Blue Shield [id number] Shield [place] [phone] [employer] self Rick [id number] Blue [id number] 89 Blue [place] 1 Cross/[place] Cross/Blue Shield [address] Shield Medicaid [id number] Medicaid self Rick [id number] [facility] [address] [place] [address] MEDICAL (GENERAL) HISTORY Type Description Date Medical History GERD Medical History genital herpes Medical History MRSA+ Medical History levator ani Surgical History tonsillectomy and adenoidectomy 1986 Surgical History arthroscopy 2003 Surgical History [email or web address] Surgical History LTH, BS, High USS, Garcia's culdoplasty, Solyx TOT 01/16/16 mid urethral sling cystoscopy Surgical History SI joint injections Surgical History gastric bypass 07/08/17 Surgical History right knee replacement 05/26/18 Hospitalization History see above Hospitalization History childbirth
--- OUTSIDE RECORDS SUMMARY | 2018-05-26 10:07 | XMS REPORT ---
:1970 External Reference #:[id number] Author Organization [employer] Address [address] [place] [address] Phone [phone] Care Team Providers Name Role Phone Sebastián Sarabia RPA Primary Care Physician Unavailable Payers Type Date Identification Numbers Payment Provider Subscriber Commercial Policy Number: [id number] [employer]ets Rick Roman PayID: [id number] [address] [address] [place] [address] Problems Date Description Provider Status Onset: 10/23/2016 Localized, primary osteoarthritis of the Florecita Ybarra M.D. Active pelvic region and thigh Onset: 10/23/2016 Localized, primary osteoarthritis Florecita Ybarra M.D. 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 Occasionally consumes alcohol Smoking Patient is a former smoker quit 12 yrs ago Exercise Type/Frequency Does not exercise Allergies, Adverse Reactions, Alerts Date Description Reaction Status Severity Comments 10/23/2016 NKDA active Medications Medication Date Status Form Strength Qnty SIG Indications Ordering Provider Tylenol Extra / Active Tablets 500mg 2 by mouth Unknown Strength 0000 as needed Multi / Active Capsules daily Unknown Complete 0000 Vagifem / Active Tablets 10mcg insert 1 Unknown 0000 tablet vaginally twice a week Vitamin B 12 / Active Lozenges 100mcg 1 by mouth Unknown 0000 every day Calcium 1200 00/ Active Chewtabs 1200-1000m 1 by mouth Unknown 0000 g-Unit every day Multivite / Active Unknown Twice Daily 0000 Vit D / Active Unknown 0000 Biotene Dry / Active Unknown Mouth 0000 Vit B1 Every / Active Unknown Mon,Wed,Fri 0000 Meloxicam 10/23/ Hx Tablets 15mg 60tabs 1 by mouth M25.561 Florecita 2016 - every day Tate RANDALL Aguirre M.D. 2017 Omeprazole / Hx Capsules 20mg Cornell, 0000 - DR Lowery 11/02/ JAva, RPA 2018 Furosemide / Hx Tablets 40mg Cornell, 0000 - Sebastián 11/02/ Benoit, RPA 2018 Topiramate / Hx Tablets 50mg Unknown 2016 Ibuprofen / Hx Tablets 200mg as needed Unknown 2016 Medications Administered in Office Medication Date Status Form Strength Qnty SIG Indications Ordering Provider Depomedrol Administered Injection Florecita 40MG Michelle Ybarra M.D. Depomedrol Administered Injection Fl[facility] 40MG Michelle Ybarra M.D. Depomedrol Administered Injection [place] 40MG Michelle Ybarra M.D. Depkathierol Administered Injection [facility] 40MG Henry Ybarra M.D. Depomedrol Administered Injection [place] 40MG Henry Ybarra M.D. Depomedrol Administered Injection [place] 40MG Henry Ybarra M.D. Vital Signs Date Vital Result Comment 05/13/2018 Height 65 inches 5'5" Weight 213.00 lb Heart Rate 64 /min BP Systolic 118 mmHg BP Diastolic 82 mmHg Respiratory Rate 12 /min Body Temperature 97.0 F Pain Level 5 BMI (Body Mass Index) 35.4 kg/m2 02/02/2018 Height 65 inches 5'5" Weight 225.00 lb BP Systolic 120 mmHg BP Diastolic 74 mmHg Body Temperature 98.5 F BMI (Body Mass Index) 37.4 kg/m2 06/30/2017 Height 65 inches 5'5" Weight 275.00 lb Heart Rate 78 /min BP Systolic 134 mmHg BP Diastolic 58 mmHg Body Temperature 98.1 F BMI (Body Mass Index) 45.8 kg/m2 01/29/2017 Height 65 inches 5'5" Weight 288.00 lb Heart Rate 98 /min BP Systolic 128 mmHg BP Diastolic 80 mmHg Body Temperature 98.0 F BMI (Body Mass Index) 47.9 kg/m2 11/22/2016 Height 65 inches 5'5" Weight 288.00 lb Heart Rate 66 /min BP Systolic 126 mmHg BP Diastolic 74 mmHg Body Temperature 97.2 F BMI (Body Mass Index) 47.9 kg/m2 10/23/2016 Height 65 inches 5'5" Weight 291.00 lb Heart Rate 65 /min BP Systolic 115 mmHg BP Diastolic 68 mmHg Respiratory Rate 17 /min Body Temperature 97.4 F Pain Level 8 BMI (Body Mass Index) 48.4 kg/m2 Results Test Date Test Result H/L Range Note CBC No Diff 07/04/2017 White Blood Count 8.8 10^3/uL 3.5-10.8 1 Red Blood Count 4.90 10^6/uL 4.0-5.4 1 Hemoglobin 14.7 g/dL 12.0-16.0 1 Hematocrit 44 % 35-47 1 Mean Corpuscular Volume 90 fL 80-97 1 Mean Corpuscular Hemoglobin 30 pg 27-31 1 Mean Corpuscular HGB Conc 33 g/dL 31-36 1 Red Cell Distribution Width 14 % 10.5-15 1 Platelet Count 267 10^3/uL 150-450 1 Mean Platelet Volume 9 um3 7.4-10.4 1 Basic Metabolic Panel 07/04/2017 Sodium 137 mmol/L 133-145 1 Potassium 3.9 mmol/L 3.5-5.0 1 Chloride 101 mmol/L 101-111 1 Co2 Carbon Dioxide 29 mmol/L 22-32 1 Anion Gap 7 mmol/L 2-11 1 Glucose 91 mg/dL 70-100 1 Blood Urea Nitrogen 10 mg/dL 6-24 1 Creatinine 0.64 mg/dL 0.51-0.95 1 BUN/Creatinine Ratio 15.6 8-20 1 Calcium 9.3 mg/dL 8.6-10.3 1 Egfr Non- 99.9 >60 1 Egfr 128.5 >60 1, 2 1 AA 07/08 2 Because ethnic data is not always readily available, this report includes an eGFR for both -Americans and non- Americans. The National Kidney Disease Education Program (NKDEP) does not endorse the use of the MDRD equation for patients that are not between the ages of 18 and 70, are , have extremes of body size, muscle mass, or nutritional status, or are non- or non-. According to the National Kidney Foundation, irrespective of diagnosis, the stage of the disease is based on the level of kidney function: Stage Description GFR(mL/min/1.73 m(2)) 1 Kidney damage with normal or decreased GFR 90 2 Kidney damage with mild decrease in GFR 60-89 3 Moderate decrease in GFR 30-59 4 Severe decrease in GFR 15-29 5 Kidney failure <15 (or dialysis) Procedures Date CPT Code Description Status 02/02/201800957 Inject/Drain Joint/Bursa Major W/O US Completed 11/03/201710161 Inject/Drain Joint/Bursa Major W/O US Completed 06/30/201743319 Inject/Drain Joint/Bursa Major W/O US Completed 01/29/201703899 Inject/Drain Joint/Bursa Major W/O US Completed 10/23/201604768 Inject/Drain Joint/Bursa Major W/O US Completed Encounters Type Date Location Provider CPT E/M Dx Office Visit 11/22/2016 [facility] Ybarra M.D. 09954 M25.561 9:15a Of [facility]AAva M17.11 M21.061 Office Visit 10/23/2016 10:00a [facility] Ybarra M.D. 01403 M25.561 [facility] M17.11 M21.061 M25.551 M25.552 M16.11 M16.12 Plan of Care Future Appointment(s):06/10/2018 9:15 am - Florecita Ybarra M.D. at [facility]05/26/2018 9:30 am - Narciso Parson PA-C at [facility]05/26/2018 9:30 am - TUSHAR Darby at [facility]05/26/2018 9:30 am - Florecita Ybarra M.D. at [facility]05/13/2018 - Florecita Ybarra M.D.M17.0 Bilateral primary osteoarthritis of kneeFollow up:Follow up: 2 weeks after invlxvaK27.561 Pain in right knee
[2018-05-26] MEDS ORDERED: Propofol* 10 MG/ML 20 ML BTL IV PUSH ONE (10:08)
[2018-05-26] MEDS ORDERED: Bupivacaine 0.5% SDV PF* 30ML VIAL ONE ×2 (10:09→10:32)
[2018-05-26] MEDS ORDERED: ROPIVACAINE 5 MG/ML 30 ML BTL (0.5%) ONE (10:09)
[2018-05-26] MEDS ORDERED: Lidocaine 2% PF * 5 ML VIAL ONE ×2 (10:09→12:16)
[2018-05-26] MEDS ORDERED: ceFAZolin 2 GM PREMIX in ORs 2 GM/50 ML BAG IVPB ONE (10:21)
[2018-05-26] MEDS ORDERED: Famotidine IV* 10 MG/ML 2 ML (20 mg) ONE (11:08)
[2018-05-26] MEDS ORDERED: Midazolam* 1 MG/ML 2 ML VIAL (2 MG) ONE (11:10)
[2018-05-26] MEDS ORDERED: Midazolam* 1 MG/ML 5 ML VIAL (5 MG) ONE (12:20)
[2018-05-26] MEDS ORDERED: Propofol* 500 MG/50 ML BTL ONE ×2 (12:43→14:22)
[2018-05-26] MEDS ORDERED: KETAMINE HCL* 50 MG/ML 10 ML VIAL ONE (12:44)
[2018-05-26] MEDS ORDERED: Dexamethasone IV* 4 MG/ML 1 ML (4 MG) ONE (13:15)
[2018-05-26] MEDS ORDERED: oxyCODONE TAB* 5 MG TAB PO PRN (13:43)
[2018-05-26] MEDS ORDERED: Ketorolac INJ* 30 MG/ML 1 ML VIAL IV PRN (13:43)
[2018-05-26] MEDS ORDERED: Ondansetron INJ* 2 MG/ML VIAL IV PRN ×2 (13:43→15:24)
[2018-05-26] MEDS ORDERED: Naloxone* 0.4 MG/ML 1 ML VIAL IV PRN (13:43)
[2018-05-26] MEDS ORDERED: Acetaminophen IV 1GM/100ML * 1,000 MG/100 ML VIAL IVPB ONE (13:43)
[2018-05-26] MEDS ORDERED: HYDROmorphone INJ1* 1 MG/ML SYRINGE IV PRN (13:46)
[2018-05-26] MEDS ORDERED: EPHEDrine (Pressors)* 50 MG/ML VIAL ONE (14:04)
[2018-05-26] MEDS ORDERED: Polyethylene Glycol 3350* 17 GM PACKET PO PRN (15:24)
[2018-05-26] MEDS ORDERED: oxyCODONE/Acetamin 5/325 MG* TAB PO PRN (15:24)
[2018-05-26] MEDS ORDERED: Bisacodyl SUPP* 10 MG SUPP PR PRN (15:24)
[2018-05-26] MEDS ORDERED: diPHENhydraMINE IV* 50 MG/ML 1 ml VIAL (BENADRYL) IV PRN (15:24)
[2018-05-26] MEDS ORDERED: diPHENhydraMINE PO* 25 MG PO PRN (15:24)
[2018-05-26] MEDS ORDERED: Magnesium Hydroxide LIQ* 30 ML UDC PO PRN (15:24)
[2018-05-26] MEDS ORDERED: Cetirizine* 10 MG TAB PO PRN (15:33)
[2018-05-26] MEDS ORDERED: Acetaminophen IV 1GM/100ML * 100 ML ONE (15:44)
[2018-05-26] MEDS ORDERED: Acetaminophen TAB* 325 MG PO SCH (16:00)
[2018-05-26] MEDS ORDERED: Enoxaparin(*) 40 MG/0.4 ML SYR SUBCUT SCH (16:00)
--- NOTE | 2018-05-26 16:07 | RAD ---
Indication: Right knee replacement. 3 views of the right knee demonstrates bipolar right knee arthroplasty in satisfactory position. No loosening is noted. No evidence of periprosthetic fracture is noted. IMPRESSION: Right knee replacement in satisfactory position.
[2018-05-26] MEDS ORDERED: Ketorolac INJ* 30 MG/ML 1 ML VIAL ONE (16:56)
[2018-05-26] MEDS ORDERED: Warfarin TAB(*) 6 MG PO ONE (17:00)
[2018-05-26] MEDS: oxyCODONE TAB* 5 MG TAB PO PRN ×2 (18:36→22:28)
[2018-05-26] MEDS: CYANOCOBALAMIN 500 MCG PO SCH (19:58)
[2018-05-26] MEDS: oxyCODONE/Acetamin 5/325 MG* TAB PO PRN (21:08)
[2018-05-26] MEDS: ceFAZolin 1 GM ADVAN(*) 1 GM in NS 0.9% 50 ML* 50 ML IVPB SCH (21:08)
[2018-05-26] MEDS: Docusate CAP* 100 MG PO SCH (21:08)
[2018-05-26] MEDS: Magnesium Hydroxide LIQ* 30 ML UDC PO SCH (21:08)
[2018-05-26] MEDS: Acetaminophen TAB* 325 MG PO SCH (22:28)
[2018-05-26] MEDS: Cyclobenzaprine TAB* 10 MG PO PRN (23:43)
[2018-05-27] MEDS: oxyCODONE/Acetamin 5/325 MG* TAB PO PRN ×2 (00:46→09:26)
[2018-05-27] MEDS: Morphine VIAL* 4 MG/ML VIAL (1 ml vial) IV PRN ×5 (01:18→23:45)
[2018-05-27] MEDS: ceFAZolin 1 GM ADVAN(*) 1 GM in NS 0.9% 50 ML* 50 ML IVPB SCH ×2 (04:52→12:30)
[2018-05-27 05:21] LABS: ABS Basophils 0 10^3/ul (0-0.2); ABS Eosinophils 0 10^3/ul (0-0.6); ABS Lymphocytes 2.2 10^3/ul (1.0-4.8); ABS Monocytes 0.8 10^3/ul (0-0.8); ABS Neutrophils 8.3 10^3/ul (1.5-7.7); ABS Nucleated RBC 0 10^3/ul; Eosinophil % 0 % (0-6); Hematocrit 39 % (35-47); Hemoglobin 12.9 g/dl (12.0-16.0); Lymphocyte % 19.7 % (25-47); Mean Corpuscular HGB Conc 33 g/dl (31-36); Mean Corpuscular Hemoglobin 31 pg (27-31); Mean Corpuscular Volume 91 fL (80-97); Mean Platelet Volume 8.6 um3 (7.4-10.4); Nucleated Red Blood Cells % 0; Platelet Count 192 10^3/ul (150-450); Red Blood Count 4.22 10^6/ul (4.00-5.40); Red Cell Distribution Width 14 % (10.5-15); White Blood Count 11.4 10^3/ul (3.5-10.8)
[2018-05-27] MEDS ORDERED: Morphine VIAL* 4 MG/ML VIAL (1 ml vial) IV ONE (05:22)
--- NOTE | 2018-05-27 05:22 | OP ---
OPERATIVE REPORT: DATE OF OPERATION: 05/26/18 DATE OF : 70 SURGEON: Florecita Ybarra MD NETWORK RELAY TESTER: JUAN Timmons Ms. Watts did help throughout the procedure with preparation of the leg, wound retraction, and manipulation of the knee and wound closure. ANESTHESIOLOGIST: Dr. Ramos. ANESTHESIA: Spinal. PRE-OP DIAGNOSIS: Severe end-stage degenerative osteoarthritis of the right knee joint with valgus deformity. POST-OP DIAGNOSIS: Severe end-stage degenerative osteoarthritis of the right knee joint with valgus deformity. OPERATIVE PROCEDURE: Right total knee arthroplasty. INDICATIONS: Ms. Roman is a 47-year-old female with years of increasingly severe right knee pain and valgus deformity. Radiographs showed advanced arthritis with [id number] contact. She failed conservative treatment with antiinflammatories, pain medications, intra-articular injection, and physical therapy. She lost significant weight and wished to proceed with surgery due to decreased quality of life. She understood due to her young age, she was at risk of early loosening and wishes to proceed. Informed consent was obtained from the patient. She understood the risks of surgery included, but were not limited to, bleeding, infection, damage to nearby structures, continued pain, need for further surgery, intraoperative fracture, nerve palsy, hardware failure or loosening, stroke, heart attack, blood clot, , knee stiffness, and loss of motion. She wished to proceed. TOURNIQUET TIME: 62 minutes. COMPLICATIONS: None. ESTIMATED BLOOD LOSS: 200 cc. SPECIMEN: Cartilage and bone from the right knee joint sent to Pathology. HARDWARE USED: This is cemented [employer] total knee arthroplasty hardware. Two packages of Simplex bone cement. For the femur, a size 5 right Narrow posterior stabilized Legion Oxinium femoral component. For the tibia, a size 3, right Bertha II tibial base plate. For the insert, a 9-mm posterior stabilized articular insert, size 3-4 and for the patella, a 29-mm 3 peg all poly patella with 7.5 thickness. INTRAOPERATIVE FINDINGS: Intraoperatively, the patient was noted to have severe end-stage arthritis with complete loss of cartilage in the lateral and patellofemoral compartments. She had lateral femoral condylar hypoplasia. She had flexion contracture of 10 degrees at the start of the case with significant lateral ligament contracture. She had valgus deformity of 15 degrees at the start of the case. Valgus deformity was corrected to 5 degrees by the end of the case. She had full extension and 130 degrees of flexion. Had tricompartmental advanced arthritis and full thickness loss of cartilage. She did not have any evidence of infection or purulence. Her interference screws were not encountered during the procedure. She did have valgus deformity of 10 degrees that was corrected to anatomic valgus at the end of the procedure. DESCRIPTION OF PROCEDURE: Ms. Roman was identified in the preanesthesia unit. Her right lower extremity was marked as the correct operative side. Informed consent was signed and placed in the chart. The patient was taken to the operating room and placed under spinal anesthesia. A Brumfield catheter was placed. Tourniquet was placed on the right thigh. Right lower extremity was prepped and draped in the usual sterile fashion. Preop time-out was made to correctly identify the patient's side and site. Appropriate perioperative antibiotics were given within 1 hour of incision. Tourniquet was inflated and total tourniquet time for this procedure was 62 minutes. A midline incision was made with 10 blade and carried down to the extensor mechanism. A new 10 blade was used to make a standard medial parapatellar arthrotomy. Electrocautery was used to subperiosteally elevate the soft tissue off the superomedial tibia to the mid sagittal plane. The knee was flexed up. The anterior horn of the lateral meniscus and ACL were sharply released. A drill was used to enter the distal femur. Intramedullary distal femoral cutting guide was pinned on the distal femur. Lateral femoral condylar hypoplasia was noted and accounted for. Oscillating saw was used to make the distal femoral cut. Next, the external rotation guide was pinned on the distal femur. The distal femur was sized to a size 5. A size 5 multi-cutting jig was pinned on the distal femur. Oscillating saw was used to make the appropriate 4 chamfer cuts. The PCL was completely released. Tibia was subluxed anteriorly. Extramedullary tibial cutting guide was pinned on the proximal tibia. Oscillating saw was used to make the proximal tibial cut. The bone was carefully removed. The knee was brought into the full extension. There was lateral ligament tightness and contracture. Any osteophytes were carefully removed. Electrocautery was used to elevate the capsule along the lateral tibial plateau bone. Posterolateral capsule was carefully released. A 15 blade was used to perform conservative pie-crusting technique of the lateral ligaments. At this point, the spacer block had good fit with the knee in full extension. Medial and lateral ligaments were well balanced. Flexion and extension gaps were well balanced. The knee was flexed up. Lamina bacon skinner was placed both medially and laterally. Any remaining meniscus was carefully removed using electrocautery. Curved osteotome was used to remove any posterior osteophytes. Tibial tray and drop rosangela were placed and once again confirmed a satisfactory tibial cut. A size 5 Narrow right femoral trial was impacted on to the distal femur and had good fit and stability. The box for the posterior stabilized implant was prepared using a reamer and box cut osteotome. A size 3 tibial tray trial with a 9-mm insert trial was placed and the knee was taken through a range of motion. The knee had full extension to 130 degrees of flexion with satisfactory patellofemoral tracking. The patella was everted. 7 mm of patellar bone and cartilage was carefully removed using an oscillating saw. The patella was sized to a size 29. Three-peg holes were drilled through the size 29 guide. 29 trial patella with a 7.5 thickness was chosen and placed. The knee was taken through a range of motion. The knee had satisfactory patellofemoral tracking. All trials were carefully removed. The tibia was subluxed anteriorly and sized to a size 3. Proximal tibia was prepared using a size 3 keel punch. All bony cut surfaces were copiously irrigated with sterile saline and dried. Final implants were cemented into place starting with the tibia followed by the femur and lastly the patella. 9-mm insert trial was placed and the knee was brought into full extension. The tourniquet was turned down. Electrocautery was used to obtain meticulous hemostasis. The knee was copiously irrigated with sterile saline. Once the cement had fully cured, the insert trial was removed. Any excess cement was removed from around the capsule and hardware. Final insert chosen was a 9-mm posterior stabilized articular insert, size 3-4. This was locked into position on the tibial tray. Stability of the insert was checked and rechecked and noted to be stable. The extensor mechanism was closed using interrupted #1 Vicryls. The rest of the incisions were closed in layered fashion using 0 and 2-0 Vicryls. The skin was closed using running 3-0 nylon suture. Sterile Xeroform, 4x4s, and Webril were used to cover the incision. Norman wrap and cold pack were placed over this. The patient's anesthesia was reversed without difficulty. She was taken to the PACU in stable condition. Intended weightbearing will be weightbearing as tolerated. Intended DVT prophylaxis will be Coumadin with a Lovenox bridge. [id number]/[facility] #: [id number] MTDD
--- NOTE | 2018-05-27 05:47 | PN ---
Progress Note - Progress Note Date of Service: 05/27/18 Note: HOSPITALIST CONSULT: REQUESTING PROVIDER: Dr. Sharma REASON FOR CONSULTATION: Abdominal Pain HPI: Ms Roman is a 47 yo F who has a h/o obesity and is s/p Soumya-en-Y gastric bypass in 06/2017 who underwent an elective R TKR with Dr. Ybarra on 05/26/18. The patient had been fine up until about 0030 on 05/27/18. She has had persistent pain despite receiving IV morphine as ordered by Dr. Sharma. The patient states the pain is in a vertical line from the pelvis to mid sternum. Just recently the pain started radiating up to the sternum. She initially though it may have been related to taking too many pills. The pain currently is focused mainly in the epigastrum. She has been burping without relief of the pain. She has not passed any flatus. Her last BM was the day prior to admission. PMHx: obesity, GERD PSHx: Soumya-en-Y gastric bypass, hysterectomy with reconstruction and bladder sling, novasure, tonsillectomy and adenoidectomy, R knee arthroscopy Allergies: NKDA Meds: Current medications reviewed and as per SEP. FamHx: Positive for HTN and DM SocHx: Non-smoker, occasional EtOH, Lives with boyfriend and daughter. ROS: As per HPI and in addition pt states her R leg feels tight. The rest of the ROS negative. PE: Selected Entries 05/27/18 04:18 Temperature 97.4 F Pulse Rate 54 Respiratory 20 Rate Blood Pressure 90/51 (mmHg) O2 Sat by Pulse 100 Oximetry General: obese middle aged female lying in bed, appearing tearful and in mild discomfort HEENT: PERRL, EOMI, oropharynx is clear and moist Cardiac: nl S1S2 heart rate is bradycardic but regular, no murmurs, no LE edema Lungs: CTA anteriorly Abdomen: BS + soft, ND, she starts crying and yelling out prior to me even touching her abdomen, she c/o diffuse abdominal pain, worse in the RUQ/ epigastrum. She is able to push into her abdomen to demonstrate where the pain is. Musculoskeletal: R LE in ROBERTO wrap and cryo unit. Skin: warm and dry Neuro: sensation is intact throughout, strength of UE normal, LE strength not tested currently Psych: Pt appears tearful Labs: Laboratory Tests 05/27/18 05/27/18 05/27/18 04:51 04:51 04:51 WBC 11.4 H Hgb 12.9 Hct 39 Plt Count 192 Sodium 136 Potassium 4.1 BUN 9 Creatinine 0.58 Lipase < 10 L A/P: Ms Roman is a 47 yo F who has a h/o GERD and obesity s/p gastric bypass last June who was admitted post elective R TKR and now is c/o severe abdominal pain. 1. Abdominal pain: Etiology is not clear. EKG without any concerning features, AXR to my interpretation: no free air but possibly mildly dilated small bowel. She has not passed any flatus. Will monitor for flatus/BM. She has had abdominal procedures and is theoretically at risk for SBO. She is not c/o nausea and not vomiting however. She could just be having gas pain. No evidence of pancreatitis. Will start simethicone prn. Additionally at home she takes mobic prn- ? if she could have gastritis/ulcer from the NSAID. Her exam is somewhat odd in that she started crying/yelling out before I even touched her abdomen however she has been able to press into the abdomen to show me where she hurts. She has received morphine IV x2 over the last 2hr. Monitor symptoms. 2. R TKR: management per ortho. 3. GERD: Start protonix IV 4. DVT prophylaxis: lovenox to start today. 5. Full code
[2018-05-27 05:57] LABS: EGFR Non-African American 111.4 (>60); INR 1.01 (0.77-1.02)
[2018-05-27 05:59] LABS: Hematocrit 39 % (35-47); Mean Platelet Volume 8.8 um3 (7.4-10.4); Platelet Count 191 10^3/ul (150-450)
[2018-05-27] MEDS: Acetaminophen TAB* 325 MG PO SCH ×3 (06:34→20:14)
[2018-05-27] MEDS: oxyCODONE TAB* 5 MG TAB PO PRN ×3 (07:25→19:49)
[2018-05-27] MEDS: Pantoprazole IV* 40 MG IV SCH (07:26)
--- NOTE | 2018-05-27 08:17 | RAD ---
HISTORY: Abdominal pain COMPARISONS: None VIEWS: Frontal views of the abdomen. FINDINGS: BOWEL: There is diffuse distention with mild dilatation of loops of small bowel within the midabdomen. There is large amount stool within the colon. CALCULI: There are no abnormal calculi. BONES AND SOFT TISSUES: There are no osseous abnormalities. OTHER FINDINGS: The lung bases are clear. There is no subphrenic gas. IMPRESSION: MILDLY DILATED LOOPS OF SMALL BOWEL. THE DIFFERENTIAL INCLUDES EARLY OR PARTIAL OBSTRUCTION. RECOMMEND ATTENTION ON FOLLOW-UP IMAGING. R1F
[2018-05-27] MEDS: Simethicone LIQ* 40 MG/0.6 ML UD ORAL SYRINGE PO PRN (09:20)
[2018-05-27] MEDS: Magnesium Hydroxide LIQ* 30 ML UDC PO SCH ×2 (09:21→20:13)
[2018-05-27] MEDS: Docusate CAP* 100 MG PO SCH ×2 (09:21→20:14)
[2018-05-27] MEDS: THIAMINE 100 MG PO SCH (11:48)
[2018-05-27] MEDS: CHOLECALCIFEROL 1000 UNIT PO SCH (11:48)
--- NOTE | 2018-05-27 11:56 | PN ---
Progress Note - Progress Note Date of Service: 05/27/18 SOAP: Subjective: []Patient seen and examined at bedside. She is having knee pain and is quite tearful today. Denies CP, SOB, dizziness, nausea. Her abdominal pain has completely subsided. She has a history of gastric bypass and difficulty with absorption. Objective: []General: Tearful but NAD RLE: Right knee dressing CDI with cryo unit in use. Thigh is soft. DF/PF intact. DP2+. Sensation intact distally Calves supple and nontender without erythema, edema or palpable cords Assessment: [] Plan: []WBAT PT/OT Trial liquid pain medication - added hydrocodone/acetaminophen liquid ins place of percocet tabs Lovenox, coumadin 8 mg Massage scheduled for tomorrow Vital Signs Temp 97.7 F 05/27/18 07:08 Pulse 52 05/27/18 07:08 Resp 18 05/27/18 11:30 BP 105/52 05/27/18 07:08 Pulse Ox 100 05/27/18 08:00 Intake & Output 05/26/18 05/27/18 05/27/18 18:59 06:59 18:59 Intake Total 1600 1972 Output Total 1600 700 150 Balance 0 1272 -150 Weight 214 lb 3.2 oz Intake: IV Fluids 1600 967 LR 1600 967 IVPB 115 ABX - CEFAZOLIN 115 Oral 890 Output: Brumfield 1500 700 150 Estimated Blood Loss 100 Other: # Bowel Movements 0 Laboratory Last Values WBC 11.4 10^3/ul (3.5-10.8) H 05/27/18 04:51 RBC 4.22 10^6/ul (4.00-5.40) 05/27/18 04:51 Hgb 13.0 g/dl (12.0-16.0) 05/27/18 04:51 Hct 39 % (35-47) 05/27/18 04:51 MCV 91 fL (80-97) 05/27/18 04:51 MCH 31 pg (27-31) 05/27/18 04:51 MCHC 33 g/dl (31-36) 05/27/18 04:51 RDW 14 % (10.5-15) 05/27/18 04:51 Plt Count 191 10^3/ul (150-450) 05/27/18 04:51 MPV 8.8 um3 (7.4-10.4) 05/27/18 04:51 Neut % (Auto) 73.0 % (38-83) 05/27/18 04:51 Lymph % (Auto) 19.7 % (25-47) L 05/27/18 04:51 [place] % (Auto) 6.9 % (0-7) 05/27/18 04:51 Eos % (Auto) 0 % (0-6) 05/27/18 04:51 Baso % (Auto) 0.4 % (0-2) 05/27/18 04:51 Absolute Neuts (auto) 8.3 10^3/ul (1.5-7.7) H 05/27/18 04:51 Absolute Lymphs (auto) 2.2 10^3/ul (1.0-4.8) 05/27/18 04:51 Absolute Monos (auto) 0.8 10^3/ul (0-0.8) 05/27/18 04:51 Absolute Eos (auto) 0 10^3/ul (0-0.6) 05/27/18 04:51 Absolute Basos (auto) 0 10^3/ul (0-0.2) 05/27/18 04:51 Absolute Nucleated RBC 0 10^3/ul 05/27/18 04:51 Nucleated RBC % 0 05/27/18 04:51 INR (Anticoag Therapy) 1.01 (0.77-1.02) 05/27/18 04:51 Sodium 136 mmol/L (135-145) 05/27/18 04:51 Potassium 4.1 mmol/L (3.5-5.0) 05/27/18 04:51 Chloride 105 mmol/L (101-111) 05/27/18 04:51 Carbon Dioxide 26 mmol/L (22-32) 05/27/18 04:51 Anion Gap 5 mmol/L (2-11) 05/27/18 04:51 BUN 9 mg/dL (6-24) 05/27/18 04:51 Creatinine 0.58 mg/dL (0.51-0.95) 05/27/18 04:51 Est GFR ( Amer) 134.8 (>60) 05/27/18 04:51 Est GFR (Non-Af Amer) 111.4 (>60) 05/27/18 04:51 BUN/Creatinine Ratio 15.5 (8-20) 05/27/18 04:51 Glucose 143 mg/dL (70-100) H 05/27/18 04:51 Calcium 8.6 mg/dL (8.6-10.3) 05/27/18 04:51 Troponin I 0.00 ng/mL (<0.04) 05/27/18 04:51 Lipase < 10 U/L (11.0-82.0) L 05/27/18 04:51
[2018-05-27] MEDS ORDERED: Calcium Carbonate CHEW TAB* 500 MG (TUMS) PO SCH (12:00)
[2018-05-27] MEDS ORDERED: CALCIUM CITRATE 250 MG PO SCH (12:00)
[2018-05-27] MEDS: HYDROcodone/ACET. 7.5/325 LIQ* 15 ML UDC PO PRN ×3 (13:19→22:01)
[2018-05-27] MEDS: Cyclobenzaprine TAB* 10 MG PO PRN ×2 (15:30→23:33)
[2018-05-27] MEDS ORDERED: Enoxaparin(*) 40 MG/0.4 ML SYR SUBCUT SCH (16:00)
[2018-05-27] MEDS ORDERED: Warfarin TAB(*) 4 MG PO ONE (17:00)
[2018-05-27] MEDS: CYANOCOBALAMIN 500 MCG PO SCH (17:57)
[2018-05-28] MEDS: oxyCODONE TAB* 5 MG TAB PO PRN ×3 (01:07→09:33)
[2018-05-28] MEDS: Morphine VIAL* 4 MG/ML VIAL (1 ml vial) IV PRN (03:10)
[2018-05-28] MEDS: HYDROcodone/ACET. 7.5/325 LIQ* 15 ML UDC PO PRN ×3 (03:14→12:38)
[2018-05-28 06:13] LABS: Hematocrit 37 % (35-47); Hemoglobin 12.5 g/dl (12.0-16.0); Mean Platelet Volume 8.6 um3 (7.4-10.4); Platelet Count 169 10^3/ul (150-450)
[2018-05-28 06:19] LABS: INR 1.48 (0.77-1.02)
[2018-05-28] MEDS: Acetaminophen TAB* 325 MG PO SCH (06:40)
[2018-05-28] MEDS: Pantoprazole IV* 40 MG IV SCH (07:10)
[2018-05-28] MEDS: CHOLECALCIFEROL 1000 UNIT PO SCH (08:47)
[2018-05-28] MEDS: THIAMINE 100 MG PO SCH (08:48)
[2018-05-28] MEDS: Magnesium Hydroxide LIQ* 30 ML UDC PO SCH (08:49)
[2018-05-28] MEDS ORDERED: Thiamine TAB* 100 MG TAB PO SCH (09:00)
[2018-05-28] MEDS ORDERED: VITAMIN D3 1000 MG PO SCH (09:00)
[2018-05-28] MEDS: Cyclobenzaprine TAB* 10 MG PO PRN (09:33)
[2018-05-28] MEDS: Docusate CAP* 100 MG PO SCH (09:33)
[2018-05-28] MEDS: Simethicone LIQ* 40 MG/0.6 ML UD ORAL SYRINGE PO PRN (10:13)
--- NOTE | 2018-05-28 10:41 | PN ---
Progress Note - Progress Note Date of Service: 05/28/18 SOAP: Subjective: []Patient seen and examined at bedside. Right knee is sore after physical therapy but pain much more tolerable than yesterday. Denies any chest pain, shortness of breath, dizziness, nausea. Denies abdominal pain, requests gas-x for home. Objective: [] General: Tearful but NAD RLE: Right knee dressing changed, incision CDI. Thigh is soft. DF/PF intact. DP2 +. Sensation intact distally Calves supple and nontender without erythema, edema or palpable cords Assessment: [] POD 2 sp right total knee arthroplasty Plan: []WBAT PT/OT hydrocodone/acetaminophen liquid has been helpful in pain control Lovenox before DC today, coumadin 8 mg today Vital Signs Temp 98.4 F 05/28/18 07:54 Pulse 79 05/28/18 07:54 Resp 18 05/28/18 09:35 BP 131/54 05/28/18 07:54 Pulse Ox 97 05/28/18 08:00 Intake & Output 05/27/18 05/28/18 05/28/18 18:59 06:59 18:59 Intake Total 1475 1180 1255 Output Total 500 1 Balance 975 1179 1255 Intake: IV Fluids 1065 1015 ABX - CEFAZOLIN 110 LR 955 1015 Oral 410 1180 240 Output: Urine 350 1 Brumfield 150 Other: Estimated Void Medium Large Date of Last Bowel 05/27/08 Movement # Bowel Movements 1 Estimated Stool Amount Large # Voids 1 2 Laboratory Last Values WBC 11.4 10^3/ul (3.5-10.8) H 05/27/18 04:51 RBC 4.22 10^6/ul (4.00-5.40) 05/27/18 04:51 Hgb 12.5 g/dl (12.0-16.0) 05/28/18 05:26 Hct 37 % (35-47) 05/28/18 05:26 MCV 91 fL (80-97) 05/27/18 04:51 MCH 31 pg (27-31) 05/27/18 04:51 MCHC 33 g/dl (31-36) 05/27/18 04:51 RDW 14 % (10.5-15) 05/27/18 04:51 Plt Count 169 10^3/ul (150-450) 05/28/18 05:26 MPV 8.6 um3 (7.4-10.4) 05/28/18 05:26 Neut % (Auto) 73.0 % (38-83) 05/27/18 04:51 Lymph % (Auto) 19.7 % (25-47) L 05/27/18 04:51 Delta % (Auto) 6.9 % (0-7) 05/27/18 04:51 Eos % (Auto) 0 % (0-6) 05/27/18 04:51 Baso % (Auto) 0.4 % (0-2) 05/27/18 04:51 Absolute Neuts (auto) 8.3 10^3/ul (1.5-7.7) H 05/27/18 04:51 Absolute Lymphs (auto) 2.2 10^3/ul (1.0-4.8) 05/27/18 04:51 Absolute Monos (auto) 0.8 10^3/ul (0-0.8) 05/27/18 04:51 Absolute Eos (auto) 0 10^3/ul (0-0.6) 05/27/18 04:51 Absolute Basos (auto) 0 10^3/ul (0-0.2) 05/27/18 04:51 Absolute Nucleated RBC 0 10^3/ul 05/27/18 04:51 Nucleated RBC % 0 05/27/18 04:51 INR (Anticoag Therapy) 1.48 (0.77-1.02) H 05/28/18 05:26 Sodium 136 mmol/L (135-145) 05/27/18 04:51 Potassium 4.1 mmol/L (3.5-5.0) 05/27/18 04:51 Chloride 105 mmol/L (101-111) 05/27/18 04:51 Carbon Dioxide 26 mmol/L (22-32) 05/27/18 04:51 Anion Gap 5 mmol/L (2-11) 05/27/18 04:51 BUN 9 mg/dL (6-24) 05/27/18 04:51 Creatinine 0.58 mg/dL (0.51-0.95) 05/27/18 04:51 Est GFR ( Amer) 134.8 (>60) 05/27/18 04:51 Est GFR (Non-Af Amer) 111.4 (>60) 05/27/18 04:51 BUN/Creatinine Ratio 15.5 (8-20) 05/27/18 04:51 Glucose 143 mg/dL (70-100) H 05/27/18 04:51 Calcium 8.6 mg/dL (8.6-10.3) 05/27/18 04:51 Troponin I 0.00 ng/mL (<0.04) 05/27/18 04:51 Lipase < 10 U/L (11.0-82.0) L 05/27/18 04:51
[2018-05-28 12:06] LABS: White Blood Count 7.6 10^3/ul (3.5-10.8)
[2018-05-28 13:03] VITALS: BP 119/65
--- NOTE | 2018-05-29 11:58 | DS ---
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 OPERATIVE PROCEDURE: Right total knee arthroplasty. HISTORY: Ms. Roman is a 47-year-old female with years of increasingly severe right knee pain and valgus deformity. She failed conservative management and elected to undergo a right total knee arthroplasty. HOSPITAL COURSE: The patient was admitted to [facility] on . She underwent a right total knee arthroplasty without complication. Postop day 0, she had abdominal pain at night for which hospitalist service was contacted. By the following morning, her abdominal pain had completely subsided and on postop day 1, she was well appearing in no acute distress. Dressing clean, dry, and intact. Dorsiflexion and plantarflexion intact. 2+ dorsalis pedis pulse. Sensation intact distally. Postop day 2, she was well appearing in no acute distress. Her pain was well controlled with liquid hydrocodone, acetaminophen as well as using p.o. tabs, cyclobenzaprine as well as oxycodone. Her dressing was changed. Incision was clean, dry, and intact. Thigh was soft. Dorsiflexion and plantarflexion intact. DP pulse 2+. Sensation intact distally. PHYSICAL EXAMINATION: Vital Signs: Temperature 98.4, pulse 79, respiratory rate 18, blood pressure 131/54, pulse ox 97%. LABORATORY DATA: Hemoglobin 12.5, hematocrit 37. INR is 1.48. DISCHARGE MEDICATIONS: 1. Claritin 10 mg p.o. daily p.r.n. 2. Vitamin D3 of 1000 mg p.o. q.a.m. 3. Acetaminophen 650 mg p.o. q.6 hours p.r.n. 4. B12 of 500 mcg sublingually p.o. q.p.m. 5. Calcium 1000 mg p.o. See instructions. 6. Vitamin B1 of 100 mg p.o. q.a.m. 7. Chewable vitamin 1 tab p.o. b.i.d. 8. Acetaminophen 975 mg p.o. q.8 hours p.r.n. 9. Cyclobenzaprine 10 mg p.o. t.i.d. p.r.n. 10. Doxycycline 100 mg p.o. b.i.d. p.r.n. 11. Oxycodone 10 mg p.o. q.4 hours p.r.n., max daily dose of 3. 12. Simethicone 80 mg p.o. 4 times a day p.r.n. 13. Warfarin 2 mg p.o. daily. 14. Hydrocodone/acetaminophen 15 mL p.o. 4 hours p.r.n. DISCHARGE PLAN: Weightbearing as tolerated. [facility] for [place]R on Mondays and . Coumadin, last INR was 1.48 on 05/28/18, dosing on 05/28/18 is 8 mg; 05/29/18 through 05/31/18 of 4 mg daily. Recheck INR on 06/01/18 for further dosing instructions. Pain control with hydrocodone/ acetaminophen liquid 15 mL every 4 hours, next 90 mL per day and then 7.5-325/ 15 mL. Oxycodone 10 mg tabs 1 tab every 4 hours as needed for breakthrough pain , max 3 tablets per day; cyclobenzaprine 10 mg tab 1 tab every 8 hours as needed for pain. Follow up with Dr. Ybarra in 10 to 14 days. She is discharged to home. JUAN REYES [id number]/[facility] #: [id number] [facility]
== END 2018-05-28 13:25 | disposition home health service (06) | DRG 302 ==
LOC: AA 10:04 → SSU 18:17
PROVIDERS: ADMIT Orthopaedic Surgery Adult Reconstructive Orthopaedic Surgery; ATTEND Orthopaedic Surgery Adult Reconstructive Orthopaedic Surgery
PROC: 0SRC069 Replacement of Right Knee Joint with Oxidized Zirconium on Polyethylene Synthetic Substitute, Cemented, Open Approach (ICD-10-PCS; principal; 2018-05-26 13:00)
DX: M17.11 Unilateral primary osteoarthritis, right knee (principal); M21.061 Valgus deformity, not elsewhere classified, right knee; R10.9 Unspecified abdominal pain; K21.9 Gastro-esophageal reflux disease without esophagitis; M25.461 Effusion, right knee; G43.909 Migraine, unspecified, not intractable, without status migrainosus; M25.761 Osteophyte, right knee; F42.9 Obsessive-compulsive disorder, unspecified; E66.9 Obesity, unspecified; Z68.35 Body mass index [BMI] 35.0-35.9, adult; Z87.891 Personal history of nicotine dependence; Z79.01 Long term (current) use of anticoagulants; Z98.84 Bariatric surgery status; Z90.710 Acquired absence of both cervix and uterus; Z83.3 Family history of diabetes mellitus; Z82.49 Family history of ischemic heart disease and other diseases of the circulatory system; Z72.89 Other problems related to lifestyle; Z86.14 Personal history of Methicillin resistant Staphylococcus aureus infection; Z87.01 Personal history of pneumonia (recurrent); Q74.2 Other congenital malformations of lower limb(s), including pelvic girdle
CPT/HCPCS: 36415; 74018; 80048; 83690; 84484; 85014; 85018; 85025; 85048; 85049; 85610; 93005; A9270-GY; G8987-GO-CJ; G8988-GO-CJ; G8989-GO-CJ; J0690; J1100; J1650; J1885; J2250; J2270; J2405; J2704; J2795

== ENCOUNTER 2020-09-05 11:24 | Observation (INO) ==
[~2020-09-05 11:24] MED LIST changes: -Buffered Lidocaine 0.9% SYRIN* 5 ML/SYR SYRINGE INTRADERM ONE; +Buffered Lidocaine 1% SYRIN 1 ml INTRADERM ONE; -Dexamethasone IV* 4 MG/ML 1 ML (4 MG) IV SLOW PU ONE; -Famotidine IV* 10 MG/ML 2 ML (20 mg) IV ONE; +Midazolam 2 mg/2 ml VIAL 1 mg/ml 2 ml VIAL (2 mg) ONE; +Propofol 10 MG/ML 20 ML BTL ONE; +ROPIVACAINE 5 MG/ML 30 ML BTL (0.5%) ONE; -Tranexamic Acid 1,000 MG in NS 0.9% 50 ML* (outpatient use) IV SCH; +fentaNYL 100 mcg/2 ml 50 MCG/ML VIAL ONE
[2020-09-05] MEDS ORDERED: ceFAZolin 2 GM PREMIX 2 GM/50 ML BAG ONE (11:41)
[2020-09-05] MEDS ORDERED: Buffered Lidocaine 1% SYRIN 1 ml INTRADERM ONE (11:42)
[2020-09-05] MEDS: Lactated Ringers 1000 ml BAG 1,000 ML IV SCH (12:10)
[2020-09-05] MEDS ORDERED: Lidocaine 1% MPF 5 ML VIAL ONE (12:20)
[2020-09-05] MEDS ORDERED: Propofol 10 mg/ml 100 ML BTL 100 ML ONE (15:04)
[2020-09-05] MEDS ORDERED: ROPIVACAINE 5 MG/ML 30 ML BTL (0.5%) ONE (15:46)
[2020-09-05] MEDS ORDERED: Lactulose 30 ml UDC PO PRN (16:28)
[2020-09-05] MEDS ORDERED: Ondansetron ODT 4 mg TAB 4 MG TAB PO PRN (16:28)
[2020-09-05] MEDS ORDERED: Ondansetron 4 mg VIAL 2 MG/ML 2 ml VIAL IV PRN (16:28)
[2020-09-05] MEDS ORDERED: Magnesium Hydroxide LIQ 30 ML UDC PO PRN (16:28)
[2020-09-05] MEDS ORDERED: diPHENhydraMINE 25 mg TAB PO PRN (16:28)
[2020-09-05] MEDS ORDERED: diPHENhydraMINE IV 50 MG/ML 1 ml VIAL (BENADRYL) IV PRN (16:28)
[2020-09-06] MEDS ORDERED: ceFAZolin 2 GM PREMIX 2 GM/50 ML BAG ONE (05:23)
[2020-09-06] MEDS ORDERED: Propofol 10 MG/ML 20 ML BTL ONE ×2 (05:24→06:34)
[2020-09-06] MEDS ORDERED: fentaNYL 100 mcg/2 ml 50 MCG/ML VIAL ONE ×2 (05:24→06:40)
[2020-09-06] MEDS ORDERED: Midazolam 2 mg/2 ml VIAL 1 mg/ml 2 ml VIAL (2 mg) ONE ×2 (05:24→06:23)
[2020-09-06] MEDS ORDERED: Dexamethasone IV 4 MG/ML VIAL 1 ml VIAL ONE (05:27)
[2020-09-06] MEDS ORDERED: ROPIVACAINE 5 MG/ML 30 ML BTL (0.5%) ONE ×2 (05:27→05:33)
[2020-09-06] MEDS: Lactated Ringers 1000 ml BAG 1,000 ML IV SCH ×3 (05:59→21:13)
[2020-09-06] MEDS ORDERED: Phenylephrine 40 mcg/mL 10mL (400mcg) SYRINGE ONE (06:54)
[2020-09-06] MEDS ORDERED: DiMENhydriNATE IV 50 mg/ml 1 ml VIAL IV PUSH PRN (07:06)
[2020-09-06] MEDS ORDERED: fentaNYL 100 mcg/2 ml 50 MCG/ML VIAL IV PRN (07:06)
[2020-09-06] MEDS ORDERED: Naloxone 0.4 mg VIAL 0.4 mg/ml 1 ml VIAL IV PRN (07:06)
[2020-09-06] MEDS ORDERED: oxyCODONE/Acetamin 5/325 mg TAB PO PRN (08:12)
[2020-09-06] MEDS: Vitamin THERAPEUTIC TAB PO SCH (09:50)
[2020-09-06] MEDS ORDERED: Estradiol VAGINAL TAB (NF) 10 MCG VAG.TAB VAGINAL SCH (10:00)
[2020-09-06] MEDS: oxyCODONE 5 mg/5 ml ORAL.SOLN UDC PO PRN ×2 (12:24→19:33)
[2020-09-06] MEDS: oxyCODONE 5 mg/5 ml ORAL.SOLN UDC PO SCH ×2 (12:25→18:24)
[2020-09-06] MEDS: ceFAZolin 1 GM ADVAN 1 GM in NS 0.9% 50 ML 50 ML IVPB SCH ×2 (14:38→21:13)
[2020-09-07] MEDS: oxyCODONE 5 mg/5 ml ORAL.SOLN UDC PO SCH ×3 (02:20→10:40)
[2020-09-07] MEDS: ceFAZolin 1 GM ADVAN 1 GM in NS 0.9% 50 ML 50 ML IVPB SCH (06:09)
[2020-09-07] MEDS: oxyCODONE 5 mg/5 ml ORAL.SOLN UDC PO PRN ×3 (06:28→15:27)
[2020-09-07 07:53] LABS: Hematocrit 34 % (35-47); Hemoglobin 11.3 g/dL (12.0-16.0); Mean Corpuscular HGB Conc 33 g/dL (31-36); Mean Corpuscular Hemoglobin 31 pg (27-31); Mean Corpuscular Volume 93 fL (80-97); Mean Platelet Volume 8.1 fL (7.4-10.4); Platelet Count 195 10^3/uL (150-450); Red Blood Count 3.67 10^6 /uL (3.70-4.87); Red Cell Distribution Width 15 % (10-15); White Blood Count 6.9 10^3/uL (3.5-10.8)
[2020-09-07 08:12] LABS: Albumin 3.1 g/dL (3.2-5.2); Albumin/Globulin Ratio 1.3 (1-3); BUN/Creatinine Ratio 14.5 (8-20); Calcium 7.8 mg/dL (8.6-10.3); EGFR African American 142.1 (>60); EGFR Non-African American 117.5 (>60); Globulin 2.4 g/dL (2-4); Potassium 3.8 mmol/L (3.5-5.0); Total Bilirubin 0.4 mg/dL (0.2-1.0); Total Protein 5.5 g/dL (6.4-8.9)
[2020-09-07] MEDS ORDERED: Fluticasone NASAL SPRAY 50MCG 16 gm SPRAY BTL INTRANASAL SCH (09:00)
[2020-09-07] MEDS: Vitamin THERAPEUTIC TAB PO SCH (09:02)
[2020-09-07 15:30] VITALS: BP 131/62
== END 2020-09-07 16:15 | disposition home or self-care (01) ==
LOC: OR 11:24 → EDSTATUS 16:00 → SSU 16:28 → INTOOBSV 16:28
PROVIDERS: ADMIT Orthopaedic Surgery Adult Reconstructive Orthopaedic Surgery; ATTEND Orthopaedic Surgery Adult Reconstructive Orthopaedic Surgery